=== PATIENT | female | born 1985 | race Caucasian/White ===

== ENCOUNTER 2016-07-13 15:46 | Emergency (ER) | payer OTHER ==
[2016-07-13 16:08] VITALS: BP 128/81
== END 2016-07-13 16:33 ==
LOC: DL.ED 15:46
DX: Z77.21 Contact with and (suspected) exposure to potentially hazardous body fluids (principal)
CPT/HCPCS: 36415; 86706; 86803; 87389

== ENCOUNTER 2020-08-01 18:41 | Emergency (ER) | payer OTHER ==
[2020-08-01 19:02] VITALS: BP 133/66; PULSE 99
--- NOTE | 2020-08-01 19:02 | EDM.PDOC ---
ED HPI GENERAL MEDICAL PROBLEM - General Chief Complaint: Abdominal Pain Stated Complaint: ABDOMINAL PAIN Time Seen by Provider: 08/01/20 19:26 Source of Information: Reports: Patient, Family, RN, RN Notes Reviewed History Limitations: Reports: No Limitations - History of Present Illness INITIAL COMMENTS - FREE TEXT/NARRATIVE: Patient is a 35-year-old female who presents to ER with complaint of left upper quadrant abdominal pain. States the pain is sharp, rates the pain 7/10. Pain began after supper on Sunday. Sunday she had nausea and complained of gas most of the day. Today greater than 20 bouts of diarrhea. States she last ate a muffin this morning. Trying to take in fluids. Family history of colon cancer, father had a colon resection, grandmother from colon cancer. States she has no personal history of diverticulitis, colitis, colon cancer. States she has "self diagnosed" and ulcer after large consumption of ibuprofen with back pain in the past. Patient denies past medical history of pancreatitis. States she had a similar episode about 1 month ago. 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 Onset: Gradual Left Upper Abdominal Pain Score (Numeric/FACES): 7 - Related Data Allergies Allergy/AdvReac Type Severity Reaction Status Date / Time No Known Allergies Allergy Verified 08/01/20 19:05 Home Meds: Home Meds Acetaminophen [Tylenol Extra Strength] 1,000 mg PO Q4H PRN 05/02/13 [History] PNV95/Ferrous Fumarate/FA [ Multivitamins] 1 each PO DAILY 05/02/13 [History] Ibuprofen 600 mg PO ASDIRECTED PRN 07/13/16 [History] Levothyroxine [Synthroid] 100 mcg PO ACBREAKFAST 08/01/20 [History] Past Medical History HEENT History: Reports: Impaired Vision Cardiovascular History: Reports: None Respiratory History: Reports: None Gastrointestinal History: Reports: None Genitourinary History: Reports: None Musculoskeletal History: Reports: None Neurological History: Reports: None Psychiatric History: Reports: None Endocrine/Metabolic History: Reports: None Hematologic History: Reports: None Immunologic History: Reports: None Oncologic (Cancer) History: Reports: None Dermatologic History: Reports: None - Infectious Disease History Infectious Disease History: Reports: Chicken Pox - Past Surgical History HEENT Surgical History: Reports: Adenoidectomy, Tonsillectomy, Other (See Below) Other HEENT Surgeries/Procedures: wisdom teeth removed Female Surgical History: Reports: Other (See Below) Other Female Surgeries/Procedures: Social & Family History - Living Situation & Occupation Living situation: Reports: Occupation: Employed ED ROS GENERAL - Review of Systems Review Of Systems: Comprehensive ROS is negative, except as noted in HPI. ED EXAM, GI/ABD - Physical Exam Exam: See Below Exam Limited By: No Limitations General Appearance: Alert, WD/WN, Mild Distress Eyes: Bilateral: Normal Appearance, EOMI Ears: Normal External Exam, Hearing Grossly Normal Nose: Normal Inspection Throat/Mouth: Normal Inspection, Normal Voice, No Airway Compromise Head: Atraumatic, Normocephalic Neck: Normal Inspection, Supple, Non-Tender, Full Range of Motion Respiratory/Chest: No Respiratory Distress, Lungs Clear, Normal Breath Sounds, No Accessory Muscle Use, Chest Non-Tender Cardiovascular: Normal Peripheral Pulses, Regular Rate, Rhythm, No Edema, No Gallop, No JVD, No Murmur, No Rub GI/Abdominal Exam: Normal Bowel Sounds, Soft, No Organomegaly, No Distention, No Abnormal Bruit, No Mass, Tender (LUQ, epigastrum) (Female) Exam: Deferred Rectal (Female) Exam: Deferred Back Exam: Normal Inspection, Full Range of Motion, NT Extremities: Normal Inspection, Normal Range of Motion, Non-Tender, Normal Capillary Refill, No Pedal Edema Neurological: Alert, Oriented, CN II-XII Intact, Normal Cognition, Normal Gait, Normal Reflexes, No Motor/Sensory Deficits Psychiatric: Normal Affect, Normal Mood Skin Exam: Warm, Dry, Intact, Normal Color, No Rash Lymphatic: No Adenopathy Course - Vital Signs Last Recorded V/S: Last Vital Signs Temp 99.1 F 08/01/20 18:58 Pulse 99 08/01/20 18:58 Resp 16 08/01/20 18:58 BP 133/66 08/01/20 18:58 Pulse Ox 100 08/01/20 18:58 - Orders/Labs/Meds Orders: Active Orders 24 hr Category Date Time Status CULTURE BLOOD [BC] Stat Lab 08/01/20 19:19 Received Blood Culture x2 Reflex Set [OM.PC] Stat Oth 08/01/20 19:12 Ordered Labs: Laboratory Tests 08/01/20 08/01/20 08/01/20 Range/Units 19:14 19:19 19:19 WBC 5.3 (5.0-10.0) 10^3/uL RBC 4.62 (4.2-5.4) 10^6/uL Hgb 13.7 (12.0-16.0) g/dL Hct 41.0 (37.0-47.0) % MCV 88.7 (80-100) fL MCH 29.7 (27.0-34.0) pg MCHC 33.4 (33.0-35.0) g/dL Plt Count 161 D (150-450) 10^3/uL Neut % (Auto) 81.4 H (42.2-75.2) % Lymph % (Auto) 6.6 L (20.5-50.1) % Towner % (Auto) 9.5 H (2-8) % Eos % (Auto) 2.1 (1.0-3.0) % Baso % (Auto) 0.4 (0.0-1.0) % Sodium 142 (136-145) mmol/L Potassium 3.6 (3.5-5.1) mmol/L Chloride 105 (98-107) mmol/L Carbon Dioxide 28 (21-32) mmol/L Anion Gap 12.6 (7-13) mEq/L BUN 4 L (7-18) mg/dL Creatinine 0.85 (0.55-1.02) mg/dL Est Cr Clr Drug Dosing 81.54 mL/min Estimated GFR (MDRD) > 60 BUN/Creatinine Ratio 4.7 (No establ ref range) Glucose 89 (70-99) mg/dL Lactic Acid (0.4-2.0) mmol/L Calcium 8.0 L (8.5-10.1) mg/dL Magnesium 1.8 (1.8-2.4) mg/dL Total Bilirubin 0.5 (0.2-1.0) mg/dL AST 22 (15-37) U/L ALT 32 (14-59) U/L Alkaline Phosphatase 41 L (46-116) U/L C-Reactive Protein 1.1 H (0.0-0.9) mg/dL Total Protein 6.3 L (6.4-8.2) g/dL Albumin 3.5 (3.4-5.0) g/dL Globulin 2.8 Albumin/Globulin Ratio 1.2 Amylase 51 (25-115) U/L Lipase 64 L (73-393) U/L Urine Color (YELLOW) Urine Appearance (CLEAR) Urine pH (5.0-9.0) Ur Specific [employer] [place] (1.005-1.030) Urine Protein (NEGATIVE) Urine Glucose (UA) (NEGATIVE) Urine Ketones (NEGATIVE) Urine Occult Blood (NEGATIVE) Urine Nitrite (NEGATIVE) Urine Bilirubin (NEGATIVE) Urine Urobilinogen (0.2-1.0) mg/dL Ur Leukocyte Esterase (NEGATIVE) Urine RBC /HPF Urine WBC (0-5/HPF) /HPF Ur Epithelial Cells (NOT SEEN) /HPF Amorphous Sediment (NOT SEEN) /HPF Urine Bacteria (0-FEW/HPF) /HPF Urine Mucus (NOT SEEN) /LPF Urine HCG, Qual SARS-CoV-2 RNA (MER) Negative (NEGATIVE) 08/01/20 08/01/20 08/01/20 Range/Units 19:19 19:21 19:21 WBC (5.0-10.0) 10^3/uL RBC (4.2-5.4) 10^6/uL Hgb (12.0-16.0) g/dL Hct (37.0-47.0) % MCV (80-100) fL MCH (27.0-34.0) pg MCHC (33.0-35.0) g/dL Plt Count (150-450) 10^3/uL Neut % (Auto) (42.2-75.2) % Lymph % (Auto) (20.5-50.1) % Towner % (Auto) (2-8) % Eos % (Auto) (1.0-3.0) % Baso % (Auto) (0.0-1.0) % Sodium (136-145) mmol/L Potassium (3.5-5.1) mmol/L Chloride (98-107) mmol/L Carbon Dioxide (21-32) mmol/L Anion Gap (7-13) mEq/L BUN (7-18) mg/dL Creatinine (0.55-1.02) mg/dL Est Cr Clr Drug Dosing mL/min Estimated GFR (MDRD) BUN/Creatinine Ratio (No establ ref range) Glucose (70-99) mg/dL Lactic Acid 0.6 (0.4-2.0) mmol/L Calcium (8.5-10.1) mg/dL Magnesium (1.8-2.4) mg/dL Total Bilirubin (0.2-1.0) mg/dL AST (15-37) U/L ALT (14-59) U/L Alkaline Phosphatase (46-116) U/L C-Reactive Protein (0.0-0.9) mg/dL Total Protein (6.4-8.2) g/dL Albumin (3.4-5.0) g/dL Globulin Albumin/Globulin Ratio Amylase (25-115) U/L Lipase (73-393) U/L Urine Color Yellow (YELLOW) Urine Appearance Slightly cloudy (CLEAR) Urine pH 6.0 (5.0-9.0) Ur Specific [employer] [place] >= 1.030 (1.005-1.030) Urine Protein Trace H (NEGATIVE) Urine Glucose (UA) Negative (NEGATIVE) Urine Ketones 15 H (NEGATIVE) Urine Occult Blood Trace-intact H (NEGATIVE) Urine Nitrite Negative (NEGATIVE) Urine Bilirubin Negative (NEGATIVE) Urine Urobilinogen 0.2 (0.2-1.0) mg/dL Ur Leukocyte Esterase Negative (NEGATIVE) Urine RBC 5-10 H /HPF Urine WBC 0-5 (0-5/HPF) /HPF Ur Epithelial Cells Many H (NOT SEEN) /HPF Amorphous Sediment Few (NOT SEEN) /HPF Urine Bacteria Few (0-FEW/HPF) /HPF Urine Mucus Moderate H (NOT SEEN) /LPF Urine HCG, Qual Negative SARS-CoV-2 RNA (MER) (NEGATIVE) Meds: Medications Discontinued Medications Generic Name Dose Route Start Last Admin Trade Name Freq PRN Reason Stop Dose Admin Al Hydroxide/Mg Hydroxide 30 ml 08/01/20 20:25 08/01/20 20:38 Gi Cocktail Oral Solution 30 Ml PO 08/01/20 20:26 30 ml ONETIME ONE Administration Dicyclomine HCl 20 mg 08/01/20 20:25 08/01/20 20:38 Dicyclomine 20 Mg/2 Ml Sdv IM 08/01/20 20:26 20 mg ONETIME ONE Administration Sodium Chloride 1,000 mls @ 999 mls/hr 08/01/20 19:14 08/01/20 20:37 Normal Saline IV 08/01/20 20:14 Infused .BOLUS ONE Infusion Morphine Sulfate 2 mg 08/01/20 19:14 08/01/20 19:34 Morphine 2 Mg/Ml Syringe IVPUSH 08/01/20 19:15 2 mg ONETIME ONE Administration Ondansetron HCl 4 mg 08/01/20 19:14 08/01/20 19:34 Ondansetron 4 Mg/2 Ml Sdv IV 08/01/20 19:15 4 mg ONETIME ONE Administration - Radiology Interpretation Free Text/Narrative:: Abdomen/Flat and upright xray: PROCEDURE INFORMATION: Exam: XR Abdomen Exam date and time: 08/01/2020 8:44 PM Age: 35 years old Clinical indication: Other: Pain; Additional info: Abdominal pain, diarrhea TECHNIQUE: Imaging protocol: XR of the abdomen. Views: 2 Views. Upright and supine views. COMPARISON: No relevant prior studies available. FINDINGS: Gastrointestinal tract: Small air-fluid levels present consistent with mild ileus. Intraperitoneal space: Normal. No free air. Bones/joints: Unremarkable for age. IMPRESSION: Small air-fluid levels present consistent with mild ileus. Thank you for allowing us to participate in the care of your patient. Dictated and Authenticated by: Angelo Bahena DO 08/01/2020 10:22 PM Central Time ([place] & [place]) See rad report Departure - Departure Time of Disposition: 22:14 Disposition: Home, Self-Care 01 Condition: Fair Clinical Impression: Gastroenteritis, Ileus Abdominal pain Qualifiers: Abdominal location: left upper quadrant Qualified Code(s): R10.12 - Left upper quadrant pain - Discharge Information *PRESCRIPTION DRUG MONITORING PROGRAM REVIEWED*: No *COPY OF PRESCRIPTION DRUG MONITORING REPORT IN PATIENT JORGE LUIS: No Instructions: Viral Gastroenteritis, Adult, [id number], Food Choices to Help Relieve Diarrhea, Adult, Abdominal Pain, Adult, [id number], Diarrhea, Adult, [id number] Referrals: PCP,None [Primary Care Provider] - Forms: ED Department Discharge Additional Instructions: Follow-up with Dr. Mosley this week Return to ER with any worsening of problems Rx: Dicyclomine 20 mg every 6-8 hours as needed for stomach pain/spasm Push fluids Sepsis Event Note (ED) - Evaluation Sepsis Screening Result: No Definite Risk - Focused Exam Vital Signs: Vital Signs Temp Pulse Resp BP Pulse Ox 08/01/20 18:58 99.1 F 99 16 133/66 100 - My Orders Last 24 Hours: My Active Orders 08/01/20 19:12 Blood Culture x2 Reflex Set [OM.PC] Stat 08/01/20 19:19 CULTURE BLOOD [BC] Stat - Assessment/Plan Last 24 Hours: My Active Orders 08/01/20 19:12 Blood Culture x2 Reflex Set [OM.PC] Stat 08/01/20 19:19 CULTURE BLOOD [BC] Stat
[2020-08-01] MEDS ORDERED: Ondansetron 4 MG/2 ML SDV IV ONE (19:14)
[2020-08-01] MEDS ORDERED: Sodium Chloride 0.9% 1,000 ML IV ONE (19:14)
[2020-08-01] MEDS ORDERED: Morphine 2 MG/ML SYRINGE IVPUSH ONE (19:14)
[2020-08-01 19:55] LABS: ANION GAP 12.6 mEq/L (7-13); CHLORIDE,CL 105 mmol/L (98-107); SODIUM,NA 142 mmol/L (136-145)
[2020-08-01] MEDS ORDERED: Dicyclomine 20 MG/2 ML SDV IM ONE (20:25)
[2020-08-01] MEDS ORDERED: GI Cocktail Oral Solution 30 ML PO ONE (20:25)
--- NOTE | 2020-08-01 22:22 | CR ---
PROCEDURE INFORMATION: Exam: XR Abdomen Exam date and time: 08/01/2020 8:44 PM Age: 35 years old Clinical indication: Other: Pain; Additional info: Abdominal pain, diarrhea TECHNIQUE: Imaging protocol: XR of the abdomen. Views: 2 Views. Upright and supine views. COMPARISON: No relevant prior studies available. FINDINGS: Gastrointestinal tract: Small air-fluid levels present consistent with mild ileus. Intraperitoneal space: Normal. No free air. Bones/joints: Unremarkable for age. IMPRESSION: Small air-fluid levels present consistent with mild ileus.
== END 2020-08-01 22:27 | disposition home or self-care (01) ==
LOC: DL.ED 18:41
DX: K52.9 Noninfective gastroenteritis and colitis, unspecified (principal); K56.7 Ileus, unspecified; Z79.899 Other long term (current) drug therapy; Z20.822 Contact with and (suspected) exposure to COVID-19
CPT/HCPCS: 36415; 74019; 80053; 81001; 81025; 82150; 83605; 83690; 83735; 85025; 86140; 87040; 96372; 96374; 96375; 99283; 99284-25; A9270-GY; J0500; J2270; J2405; J7030; U0002